=== PATIENT | male | born 1950 | race Caucasian/White ===

== ENCOUNTER → 2021-01-01 09:38 | Outpatient (BNVA) | payer OTHER, SELFPAY | PROVIDERS: Family Provider Family Medicine; PCP Internal Medicine; Visit Provider Surgery | DX: Z11.52 Encounter for screening for COVID-19 (principal) | CPT/HCPCS: 87635 ==

== ENCOUNTER 2021-01-06 09:47 | Day surgery (SDC) | payer OTHER, MEDICARE, SELFPAY ==
[2021-01-04 09:28] VITALS: BMI 22.1
--- NOTE | 2021-01-06 10:54 | ANES.PREANE2 ---
Pre-Anesthetic Assessment Pre-Anesthetic Assessment: Height/Weight: Height 1.73 m Weight 66.224 kg Proposed Procedure: Operation Date: 01/06/21 11:30 Proposed Procedures p Colonoscopy 76755 Z12.11(Not Applicable) - German Pelayo MD Was Beta Atilio taken within 24 hours: N/A Was Clonidine taken within 24 hours: N/A Social: Social History: No alcohol and No tobacco (h/o smoking) Exam: Pre-Anes Outpt Exam: alert, oriented x 3, clear to auscultation bilaterally and regular rate & rhythm Airway: Submandibular: WNL Cervical ROM: WNL MP: 2 Dentition: False Pulmonary: Pulmonary: COPD CV/HEM: CV/HEM: HTN and PVD Comments: AAA repair, anticoagulated Metabolic: Metabolic: DM and Hyperlipidemia Anesthetic Plan: ASA status: 3 Anesthesia: MAC Risk of > 500 ml blood loss (7ml/kg in children): No PFSH Anesthesia PFSH: Family History Mother CAD (coronary artery disease) Diabetes Father Dementia Diabetes Other Cancer Denies family history of Stroke Social History Smoking and tobacco status: former smoker Second hand smoke exposure: No Alcohol intake: current Alcohol intake frequency: few times a week Lives independently: Yes Data Anesthesia Cardiac Studies: No Data to Display
[2021-01-06 11:15] VITALS: BP 161/86; PULSE 95; RESP 18; TEMP 36.8; O2SAT 97
[2021-01-06 11:30] LABS: Glucose Point of Care 80 mg/dL (70-110)
[2021-01-06] MEDS: sodium chloride 0.9% 1,000 ML 30 ML IV (11:30)
--- NOTE | 2021-01-06 11:47 | W.PM.OPSFHP ---
Same Day Surgery H&P Indication for Procedure/HPI DATE OF PROCEDURE: January 06, 2021 CHIEF COMPLAINT/INDICATIONFOR SURGICAL PROCEDURE: Screening colonoscopy PREOP DIAGNOSIS: Screening colonoscopy PLANNED PROCEDRUE: Operation Date: 01/06/21 11:30 Proposed Procedures p Colonoscopy 76613 Z12.11(Not Applicable) - German Pelayo MD This is a pleasant 70 years old gentleman presents to my practice, to discuss screening colonoscopy. Denies bleeding per rectum or history of colon cancer. Interim history 01/06/2021 Patient comes today for screening colonoscopy ROS All systems have been reviewed negative except as per the above or per problem list Medications/Allergies* Home Medications Medication Instructions Recorded Confirmed Type apixaban 5 mg tablet 5 mg PO BID 11/16/20 01/06/21 History cholecalciferol (vitamin D3) 50 50 mcg PO DAILY 11/16/20 01/06/21 History mcg (2,000 unit) capsule lisinopril 20 mg tablet 20 mg PO DAILY 11/16/20 01/06/21 History metformin 500 mg tablet 500 mg PO DAILY 11/16/20 01/06/21 History metoprolol tartrate 50 mg tablet 50 mg PO BID 11/16/20 01/06/21 History omega-3 fatty acids 300 mg-fish 1 cap PO DAILY 11/16/20 01/06/21 History oil 400 mg capsule rosuvastatin 10 mg tablet 10 mg PO DAILY 11/16/20 01/06/21 History Allergies/Adverse Reactions Allergy/AdvReac Type Severity Reaction Status Date / Time Penicillins Allergy Intermediate unknown Verified 11/18/20 14:32 Current Medications: Generic Name Dose Route Start Last Admin Trade Name Deshaunq PRN Reason Stop Dose Admin Sodium Chloride 1,000 mls @ 30 mls/hr 01/06/21 11:30 01/06/21 11:30 Sodium Chloride 0.9% IV 01/07/21 11:29 30 mls/hr .Q24H MONISHA Administration Pertinent History/Comorbid Conditions* Family History (Updated 11/16/20 @ 09:39 by Celine Rossi) Diabetes Mother Father CAD (coronary artery disease) Mother Dementia Father Cancer Denies family history of Stroke Social History Smoking and tobacco status: former smoker Second hand smoke exposure: No Alcohol intake: current Alcohol intake frequency: few times a week Lives independently: Yes Pertinent Exam Findings alert, oriented x 3, clear to auscultation bilaterally, regular rate & rhythm and procedure specific exam findings (Abdominal examination nontender nondistended soft) Recommendations Surgery/Procedure today (Screening colonoscopy) Other Plans: Plan of care; After thorough history and physical examination and reviewing the chart, plan to perform screening colonoscopy. I discussed with the patient in details the risks,benefits,alternatives and indications.The risk of aspiration, bleeding, soft tissue injury, perforation of the colon and other potential concomitant complications were explained to the patient in details,also the potential need for Laproscoy/Laparotomy to repair any related complications including but not limited to colectomy and or Closotomy.The patient understood this well and did agree to proceed. Rationale was carefully and clearly discussed with the patient.Appropriate informed consent have been reviewed and signed All questions have been answered and all concerns have been addressed to patient's satisfaction. 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
[2021-01-06 12:32] VITALS: BP 133/79; PULSE 64; RESP 16; TEMP 36.7; O2SAT 100
[2021-01-06 12:45] VITALS: BP 154/89; PULSE 68; RESP 18; O2SAT 100
--- NOTE | 2021-01-06 13:55 | ANE.PACU2 ---
Inpatient post-anesthesia follow up: Airway intact: Yes Vital signs: Temperature 98.1 F Pulse Rate 68 Respiratory Rate 18 Blood Pressure 154/89 Pulse Oximetry 100 Oxygen Delivery Me thod Room Air Oxygen Flow Rate Fraction of Inspir ed Oxygen Hydration adequate: Yes Nausea and vomiting: No Pain level: 1 Mental status: Baseline
== END 2021-01-06 13:03 | disposition home or self-care (01) ==
PROVIDERS: PCP Family Medicine; Visit Provider Surgery
PROC: 0DJD8ZZ Inspection of Lower Intestinal Tract, Via Natural or Artificial Opening Endoscopic (ICD-10-PCS; CPT 45378; principal; 2021-01-06 11:30)
DX: Z12.11 Encounter for screening for malignant neoplasm of colon (principal); K57.30 Diverticulosis of large intestine without perforation or abscess without bleeding; Z87.891 Personal history of nicotine dependence; Z83.3 Family history of diabetes mellitus; Z82.49 Family history of ischemic heart disease and other diseases of the circulatory system; J44.9 Chronic obstructive pulmonary disease, unspecified; I10 Essential (primary) hypertension; E11.9 Type 2 diabetes mellitus without complications; E78.5 Hyperlipidemia, unspecified
CPT/HCPCS: 36416; 82962; 96360; G0121; J2704; J7030

== ENCOUNTER 2022-10-31 08:20 | Outpatient (CLI) | payer OTHER, SELFPAY ==
--- NOTE | 2022-10-31 08:31 | USR_ITS ---
PROCEDURE INFORMATION: Exam: US Abdomen; Limited Exam date and time: 10/31/2022 8:45 AM Age: 72 years old Clinical indication: Screening exam; Other: Aaa repair 2006; Prior surgery; Surgery date: 6+ months; Additional info: Screening aaa TECHNIQUE: Imaging protocol: Real time ultrasound of the abdomen with image documentation. Limited exam focused on the region of clinical interest. COMPARISON: No relevant prior studies available. FINDINGS: Aorta: No aortic aneurysm. The aorta measures 2.7 x 3.0 cm proximally, 2.6 x 2.5 cm in the mid segment, and 2.9 x 2.8 cm distally. Common iliac arteries: Patent common iliac arteries, measuring up to 1.5 cm in diameter on the right and 1.1 cm in diameter on the left. Mildly increased peak systolic velocities in the proximal common iliac arteries, suggestive of mild stenosis. US/[place] abd [place]n [id number] IMPRESSION: No aortic aneurysm, as clinically questioned.
== END 2022-10-31 08:21 | disposition home or self-care (01) ==
LOC: RAD 08:22
PROVIDERS: PCP Family Medicine; Visit Provider Family Medicine
DX: Z13.6 Encounter for screening for cardiovascular disorders (principal); Z98.890 Other specified postprocedural states
CPT/HCPCS: 76706

== ENCOUNTER → 2022-11-09 10:55 | Outpatient (BNVA) | payer OTHER, SELFPAY | PROVIDERS: PCP Family Medicine; Visit Provider Internal Medicine Cardiovascular Disease | DX: R00.1 Bradycardia, unspecified (principal); I48.91 Unspecified atrial fibrillation; I10 Essential (primary) hypertension; E78.5 Hyperlipidemia, unspecified; Z86.39 Personal history of other endocrine, nutritional and metabolic disease | CPT/HCPCS: 93005; 99204 ==

== ENCOUNTER 2022-11-18 08:49 | Outpatient (CLI) | payer OTHER, SELFPAY ==
--- NOTE | 2022-11-18 09:15 | USCV_ITS ---
Cipriano Frost Age: 72 Gender: M : 1950 Exam Date: 11/18/2022 09:16 Ordering Phys: Tanika Solis MD ([email or web address]) Technologist: ESPERANZA Exam Location: [facility] [place] Indication: BRADYCARDIA BP: 107 / 58 HR: 75 Rhythm: Atrial fibrillation Technical Quality: Adequate MEASUREMENTS (Male / Female) Normal Values 2D ECHO LVOT Diameter 2.0 cm LV Ejection Fraction MOD 2C 63.4 % LV Ejection Fraction 2C AL 64.3 % LA Diameter 1.8 cm LA Width 4.1 cm LA Height 5.0 cm RA Width 3.3 cm RA Height 4.9 cm Aorta at Sinotubular Diameter 2.4 cm IVC Diameter 1.5 cm M-MODE Aortic Annulus Diameter 2.9 cm LA Ao Ratio MM 0.4 MV E Point Septal Separation 0.3 cm DOPPLER AV Peak Velocity 133.0 cm/s LVOT Peak Velocity 92.0 cm/s AV Area Cont Eq vti 2.2 cm squared AV Area Cont Eq pk 2.2 cm squared MV Peak Velocity 97.0 cm/s MV Area PHT 3.6 cm squared MV E' Velocity 58.0 cm/s Mitral E to MV E' Ratio 8.0 Mitral E to LV E' Lateral Ratio 7.5 Mitral E to LV E' Septal Ratio 8.7 TR Peak Velocity 164.9 cm/s TR Peak Gradient 10.9 mmHg TR Mean Velocity 140.9 cm/s TR Mean Gradient 8.2 mmHg TR Velocity Time Integral 44.0 cm TV Peak E Velocity 65.0 cm/s Right Atrial Pressure 3.0 mmHg Pulmonary Artery Systolic Pressu 13.9 mmHg FINDINGS Left Ventricle Normal left ventricular size and systolic function with no regional wall motion abnormalities. Left ventricular ejection fraction is estimated at 65 %. Rhythm precludes evaluation of diastolic function. Right Ventricle Normal right ventricular size and systolic function. Right Atrium Normal right atrial size. Left Atrium Moderately increased left atrial size. Mitral Valve Mildly thickened mitral valve. No mitral valve stenosis. Moderate mitral valve regurgitation. Aortic Valve Aortic valve not well visualized. No aortic valve stenosis. No aortic valve regurgitation. Tricuspid Valve Structurally normal tricuspid valve. Pulmonic Valve Pulmonic valve not well visualized. Pericardium No pericardial effusion. Aorta Aorta not well visualized. IVC Normal IVC dimension with >50% respiratory change of the inferior vena cava. CONCLUSIONS 1. Normal left ventricular size and systolic function with no regional wall motion abnormalities. Left ventricular ejection fraction is estimated at 65 %. 2. Normal right ventricular size and systolic function. 3. Moderate mitral valve regurgitation. 4. No parasternal windows available. No prior similar studies to compare Tanika Solis MD (Electronically Signed) Final Date: 21 November 2022 17:23 S
== END 2022-11-18 08:50 | disposition home or self-care (01) ==
LOC: RAD 08:51
PROVIDERS: PCP Family Medicine; Visit Provider Internal Medicine Cardiovascular Disease
DX: I48.91 Unspecified atrial fibrillation (principal); R00.1 Bradycardia, unspecified; I34.0 Nonrheumatic mitral (valve) insufficiency
CPT/HCPCS: 93306

== ENCOUNTER 2022-12-20 11:00 | Outpatient (CLI) | payer OTHER, SELFPAY | END 2022-12-20 11:01 | disposition home or self-care (01) | LOC: SLEEP 12-21 11:51 | PROVIDERS: PCP Family Medicine; Visit Provider Internal Medicine Cardiovascular Disease | DX: G47.33 Obstructive sleep apnea (adult) (pediatric) (principal); I48.91 Unspecified atrial fibrillation | CPT/HCPCS: G0399 ==

== ENCOUNTER 2022-12-26 08:40 | Outpatient (CLI) | payer OTHER, SELFPAY ==
--- NOTE | 2022-12-26 | ECG_ITS ---
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 Interpretive Statements NAME OF STUDY: EXERCISE SESTAMIBI STRESS TEST INDICATION: NSVT, Exertional SOB Baseline blood pressure of 155/81 mm Hg, heart rate of 80 beats per minute and oxygen saturation of 98%. EKG showed watrial fibrillation, normal axis with non specific ST depression The patient exercised for 5 minutes and 52 seconds on a [standard Mendoza protocol]. Patient attained a maximum heart rate of 158 beats per minute( 102 % of the maximum predicted heart rate) with a blood pressure at the peak exercise of 173/85 mm Hg and oxygen saturation of 95% . The EKG at the peak exercise revealed 1/2-[address] depression (horizontal/upsloping) lead II, aVF, V4-V6 . Interpretation limited by artifact. Patient did [not have any chest pain or any significant arrhythmis with the exercise].??? During the recovery phase, there were no new changes. ??? Blood pressure at the end of the recovery phase was 149/77 mm Hg with a heart rate of 96 beats per minute and oxygen saturation of 98%. ??? CONCLUSION: 1. Equivocal EKG response to treadmill exercise. 2. No exercise-induced chest pain or cardiac arrhythmia. 3. Fair exercise tolerance, attained a maximum of 7 METs. 4. Baseline hypertension with normal response to exercise. 5. Perfusion scan will be documented separately. Electronically Signed On 01-01-2023 12:07:40 CDT by Tanika Solis M.D. [email or web address]
[2022-12-26 08:59] VITALS: BMI 21.1
--- NOTE | 2022-12-26 09:01 | NMCV_ITS ---
NM hank perf SPECT r/s* [id number] Cipriano Frost Age: 72 Gender: M : 1950 Exam Date: 12/26/2022 09:01 Ordering Phys: Tanika Solis MD ([email or web address]) Technologist: VIJAY Strickland Exam Location: [facility] Indications: SHORTNESS OF BREATH, VENTRICULAR TRACHYCARDIA STRESS TEST Please [facility] IMAGE PROTOCOL Rest/Stress 1 Exercise Day Radiopharmaceutical Dose (mCi) Administration Site Administered by Rest: Tc-99m 10.8 IV VIJAY Guo Sestamibi Stress:Tc-99m 32.6 IV VIJAY Guo Sestamibi Rest: 26-Dec-2022 60 Discovery 630 Stress: 26-Dec-2022 15 Discovery 630 Radiopharmaceutical was injected at 92 % maximum heart rate. Images obtained in supine and prone position. SPECT RESULTS Technical Quality: Excellent Raw Data Analysis: Normal Image Corrections: No attenuation or motion correction applied Summed Stress Score: 4 Summed Rest Score: 0 Summed Difference Score: 4 PERFUSION FINDINGS Small sized perfusion abnormality of mild severity of mid anterolateral, apical lateral and apical michael on supine stress images with improved tracer uptake in prone stress images. FUNCTIONAL RESULTS (calculated via Gated SPECT) Stress Image LV EF (%): 81 Stress EDV (mL):101 TID: 0.86 Stress ESV (mL):19 FUNCTIONAL FINDINGS: The left ventricle is normal in size. Transient Ischemia Dilatation of 0.86. The left ventricular ejection fraction is normal with a value of 81%. There is hyperdynamic left ventricular wall thickening. Normal end diastolic and end systolic volumes. IMPRESSIONS 1. Small sized perfusion abnormality of mild severity of mid anterolateral, apical lateral and apical michael on supine stress images with improved tracer uptake on prone images. This likely represents attenuation artifact. 2. Overall left ventricular systolic function is normal without regional wall motion abnormalities, LVEF=81%. 3. EKG portion of the study will be reported separately. Tanika Solis MD (Electronically Signed) Final Date: 31 December 2022 22:22 S
[2022-12-26 10:51] VITALS: BP 149/77; PULSE 99
== END 2022-12-26 08:41 | disposition home or self-care (01) ==
LOC: CDL 08:40
PROVIDERS: PCP Family Medicine; Visit Provider Internal Medicine Cardiovascular Disease
DX: R06.02 Shortness of breath (principal); I47.20 Ventricular tachycardia, unspecified
CPT/HCPCS: 36415; 78452; 93017; A9500

== ENCOUNTER → 2023-02-07 10:10 | Outpatient (BNVA) | payer OTHER, SELFPAY | PROVIDERS: PCP Family Medicine; Visit Provider Podiatrist Foot & Ankle Surgery | DX: E11.42 Type 2 diabetes mellitus with diabetic polyneuropathy (principal); L60.3 Nail dystrophy; M21.621 Bunionette of right foot; M21.622 Bunionette of left foot; Z79.84 Long term (current) use of oral hypoglycemic drugs | CPT/HCPCS: 11721; 99203 ==

== ENCOUNTER → 2023-03-08 10:26 | Outpatient (BNVA) | payer OTHER, SELFPAY | PROVIDERS: PCP Family Medicine; Visit Provider Internal Medicine Cardiovascular Disease | DX: R00.1 Bradycardia, unspecified (principal); G47.33 Obstructive sleep apnea (adult) (pediatric); I48.91 Unspecified atrial fibrillation; Z79.01 Long term (current) use of anticoagulants | CPT/HCPCS: 99214 ==

== ENCOUNTER → 2023-05-10 14:11 | Outpatient (BNVA) | payer OTHER, SELFPAY | PROVIDERS: PCP Family Medicine; Visit Provider Podiatrist Foot & Ankle Surgery | DX: E11.42 Type 2 diabetes mellitus with diabetic polyneuropathy (principal); L60.3 Nail dystrophy; M21.621 Bunionette of right foot; M21.622 Bunionette of left foot; Z79.84 Long term (current) use of oral hypoglycemic drugs | CPT/HCPCS: 11721 ==

== ENCOUNTER 2023-06-19 20:00 | Outpatient (CLI) | payer OTHER, SELFPAY | END 2023-06-19 20:01 | disposition home or self-care (01) | LOC: SLEEP 06-20 05:48 | PROVIDERS: PCP Family Medicine; Visit Provider Internal Medicine Cardiovascular Disease | DX: G47.33 Obstructive sleep apnea (adult) (pediatric) (principal) | CPT/HCPCS: 95811 ==

== ENCOUNTER → 2023-08-01 10:39 | Outpatient (BNVA) | payer OTHER, SELFPAY | PROVIDERS: PCP Family Medicine; Visit Provider Podiatrist Foot & Ankle Surgery | DX: E11.42 Type 2 diabetes mellitus with diabetic polyneuropathy (principal); L60.3 Nail dystrophy; M21.621 Bunionette of right foot; M21.622 Bunionette of left foot; L84 Corns and callosities; S90.222A Contusion of left lesser toe(s) with damage to nail, initial encounter; X58.XXXA Exposure to other specified factors, initial encounter; Z79.84 Long term (current) use of oral hypoglycemic drugs | CPT/HCPCS: 11056; 11721; 99213 ==

== ENCOUNTER → 2023-10-05 13:19 | Outpatient (BNVA) | payer OTHER, SELFPAY | PROVIDERS: PCP Family Medicine; Visit Provider Internal Medicine Cardiovascular Disease | DX: E78.5 Hyperlipidemia, unspecified (principal); I10 Essential (primary) hypertension; I48.91 Unspecified atrial fibrillation; R00.1 Bradycardia, unspecified; G47.33 Obstructive sleep apnea (adult) (pediatric); E11.42 Type 2 diabetes mellitus with diabetic polyneuropathy; Z87.891 Personal history of nicotine dependence; Z79.01 Long term (current) use of anticoagulants; Z79.84 Long term (current) use of oral hypoglycemic drugs | CPT/HCPCS: 99213 ==

== ENCOUNTER → 2023-10-31 10:06 | Outpatient (BNVA) | payer OTHER, SELFPAY | PROVIDERS: PCP Family Medicine; Visit Provider Podiatrist Foot & Ankle Surgery | DX: E11.42 Type 2 diabetes mellitus with diabetic polyneuropathy (principal); L60.3 Nail dystrophy; L84 Corns and callosities; Z79.84 Long term (current) use of oral hypoglycemic drugs | CPT/HCPCS: 11056; 11721 ==

== ENCOUNTER → 2024-02-06 10:27 | Outpatient (BNVA) | payer MEDICARE, OTHER, SELFPAY | PROVIDERS: PCP Family Medicine; Visit Provider Podiatrist Foot & Ankle Surgery | DX: E11.42 Type 2 diabetes mellitus with diabetic polyneuropathy (principal); L60.3 Nail dystrophy; L84 Corns and callosities; Z79.84 Long term (current) use of oral hypoglycemic drugs | CPT/HCPCS: 11056; 11721 ==

== ENCOUNTER → 2024-03-21 15:05 | Outpatient (BNVA) | payer MEDICARE, OTHER, SELFPAY | PROVIDERS: PCP Family Medicine; Visit Provider Internal Medicine Cardiovascular Disease | DX: I71.40 Abdominal aortic aneurysm, without rupture, unspecified (principal); I10 Essential (primary) hypertension; I48.20 Chronic atrial fibrillation, unspecified; E78.5 Hyperlipidemia, unspecified; Z87.891 Personal history of nicotine dependence; Z79.01 Long term (current) use of anticoagulants | CPT/HCPCS: 99213 ==

== ENCOUNTER → 2024-05-06 10:35 | Outpatient (BNVA) | payer OTHER, SELFPAY | PROVIDERS: PCP Family Medicine; Visit Provider Podiatrist Foot & Ankle Surgery | DX: E11.8 Type 2 diabetes mellitus with unspecified complications (principal); E11.42 Type 2 diabetes mellitus with diabetic polyneuropathy; L60.3 Nail dystrophy; L84 Corns and callosities; Z79.84 Long term (current) use of oral hypoglycemic drugs | CPT/HCPCS: 11056; 11721 ==

== ENCOUNTER → 2024-10-22 09:51 | Outpatient (BNVA) | payer OTHER, SELFPAY | PROVIDERS: PCP Family Medicine; Visit Provider Podiatrist Foot & Ankle Surgery | DX: E11.42 Type 2 diabetes mellitus with diabetic polyneuropathy (principal); L60.3 Nail dystrophy; L84 Corns and callosities; E11.8 Type 2 diabetes mellitus with unspecified complications; Z79.84 Long term (current) use of oral hypoglycemic drugs | CPT/HCPCS: 11056; 11721 ==

== ENCOUNTER → 2025-01-27 10:11 | Outpatient (BNVA) | payer OTHER, SELFPAY | PROVIDERS: PCP Family Medicine; Visit Provider Podiatrist Foot & Ankle Surgery | DX: E11.8 Type 2 diabetes mellitus with unspecified complications (principal); L60.3 Nail dystrophy; L84 Corns and callosities; E11.42 Type 2 diabetes mellitus with diabetic polyneuropathy; Z79.84 Long term (current) use of oral hypoglycemic drugs | CPT/HCPCS: 11056; 11721 ==

== ENCOUNTER → 2025-03-20 14:50 | Outpatient (BNVA) | payer OTHER, SELFPAY | PROVIDERS: PCP Family Medicine; Visit Provider Internal Medicine Cardiovascular Disease | DX: I48.20 Chronic atrial fibrillation, unspecified (principal); E78.5 Hyperlipidemia, unspecified; I10 Essential (primary) hypertension; Z87.891 Personal history of nicotine dependence; Z95.0 Presence of cardiac pacemaker | CPT/HCPCS: 99214 ==